=== PATIENT | female | born 1965 | race Caucasian/White ===

== ENCOUNTER → 2018-02-19 | Outpatient (CLI) | payer BC ==
--- NOTE | 2018-02-20 11:39 | MM ---
Reason for exam: screening (asymptomatic). Last mammogram was performed 2 years ago. Physical Findings: A clinical breast exam by your physician is recommended on an annual basis and results should be correlated with mammographic findings. MG 3D Screening Mammo W/Cad Bilateral CC and MLO view(s) were taken. Prior study comparison: March 05, 2016, mammogram, performed at [facility]. February 23, 2015, mammogram, performed at [facility]. The breast tissue is heterogeneously dense. This may lower the sensitivity of mammography. There are benign appearing round calcifications in the left breast. Asymmetric breast tissue in the right upper quadrant is stable. There is no discrete abnormality. ASSESSMENT: Benign, BI-RAD 2 RECOMMENDATION: Routine screening mammogram of both breasts in 1 year.
== END ==
LOC: RADMAMWWP 07:33
PROVIDERS: ATTEND Family Medicine
DX: Z12.31 Encounter for screening mammogram for malignant neoplasm of breast (principal)
CPT/HCPCS: 77063; 77067

== ENCOUNTER → 2019-05-03 | Outpatient (CLI) | payer BC ==
--- NOTE | 2019-05-03 10:17 | MM ---
Reason for exam: screening (asymptomatic). Last mammogram was performed 1 year and 2 months ago. History: Took hormonal contraceptives for 2 years. Physical Findings: A clinical breast exam by your physician is recommended on an annual basis and results should be correlated with mammographic findings. MG 3D Screening Mammo W/Cad Bilateral CC and MLO view(s) were taken. Prior study comparison: February 19, 2018, bilateral MG 3d screening mammo w/cad. March 05, 2016, mammogram, performed at [facility]. There are scattered fibroglandular densities. No suspicious abnormality. No significant changes when compared with prior studies. ASSESSMENT: Negative, BI-RAD 1 RECOMMENDATION: Routine screening mammogram of both breasts in 1 year.
== END | disposition home or self-care (01) ==
LOC: RADMAMWWP 07:11
PROVIDERS: ATTEND Family Medicine
DX: Z12.31 Encounter for screening mammogram for malignant neoplasm of breast (principal)
CPT/HCPCS: 77063; 77067

== ENCOUNTER 2019-12-08 10:00 | Inpatient (IN) | payer BC ==
[2019-12-08] MEDS ORDERED: ASPIRIN 81 MG PO STA (10:12)
[2019-12-08] MEDS ORDERED: NITROGLYCERIN OINT 1 INCH/GM PACKET TOPICAL STA (10:12)
--- NOTE | 2019-12-08 10:37 | XR ---
EXAMINATION TYPE: XR chest 2V DATE OF EXAM: 12/08/2019 CLINICAL HISTORY: Left chest pain TECHNIQUE: Frontal and lateral views of the chest are obtained. COMPARISON: None FINDINGS: The cardiomediastinal silhouette is within normal limits for size. Pulmonary vasculature i s normal. There is no focal air space opacity, pleural effusion, or pneumothorax seen. The osseous st ructures are intact. IMPRESSION: No acute cardiopulmonary process.
[2019-12-08 10:51] LABS: ALT 38 U/L (4-34); AST 71 U/L (14-36); African American GFR (CKD) >90 (>60 ml/min/1.73 sqM); Albumin 4.4 g/dL (3.5-5.0); Alkaline Phosphatase 76 U/L (38-126); Anion Gap 6 mmol/L; Blood Urea Nitrogen 15 mg/dL (7-17); Calcium 9.9 mg/dL (8.4-10.2); Carbon Dioxide 26 mmol/L (22-30); Chloride 106 mmol/L (98-107); Glucose 96 mg/dL (74-99); Non-African American GFR(CKD) 80 (>60 ml/min/1.73 sqM); Potassium 4.4 mmol/L (3.5-5.1); Sodium 138 mmol/L (137-145); Total Bilirubin 0.7 mg/dL (0.2-1.3); Total Protein 7.4 g/dL (6.3-8.2)
[2019-12-08 10:57] LABS: D-Dimer 0.23 mg/L FEU (<0.60); Partial Thromboplastin Time 22.6 sec (22.0-30.0)
[2019-12-08 11:04] LABS: Basophils % (A) 1 %; Eosinophils % (A) 0 %; HCT 41.4 % (34.0-46.0); HGB 13.6 gm/dL (11.4-16.0); Lymphocytes # (A) 1.5 k/uL (1.0-4.8); Lymphocytes % (A) 27 %; MCH 30.9 pg (25.0-35.0); MCHC 32.7 g/dL (31.0-37.0); MCV 94.3 fL (80.0-100.0); Mean Platelet Volume 7.5; Monocytes # (A) 0.5 k/uL (0-1.0); Monocytes % (A) 8 %; Neutrophils # (A) 3.5 k/uL (1.3-7.7); Neutrophils % (A) 62 %; Platelet Count 241 k/uL (150-450); RBC 4.39 m/uL (3.80-5.40); RDW 12.3 % (11.5-15.5); WBC 5.6 k/uL (3.8-10.6)
--- NOTE | 2019-12-08 11:22 | ED ---
General Adult HPI - General Chief complaint: Chest Pain Stated complaint: abnormal pabs Time Seen by Provider: 12/08/19 10:10 Source: patient, RN notes reviewed, old records reviewed Mode of arrival: ambulatory Limitations: no limitations - History of Present Illness Initial comments: This a 54-year-old female presents to the emergency department complaining that she had some anterior chest pain yesterday and pain going down her left arm. Patient states with her primary medical care doctor's office and they did an EKG and rohan some blood. Patient states today she was told that she has go to the emergency department because one of her cardiac enzymes was elevated. Patient states she no longer has any chest pain or pressure. Patient complains of left arm pain. Patient denies any recent fever chills or cough. Patient denies any abdominal pain patient denies nausea vomiting diarrhea. Patient denies any diaphoretic episodes. Patient denies any lightheadedness dizziness or near syncopal episode. - Related Data Home Medications Medication Instructions Recorded Confirmed Diclofenac Sodium [Voltaren] 75 mg PO BID PRN 12/08/19 12/08/19 Hyaluronic Acid 1 tab PO DAILY 12/08/19 12/08/19 L.acidoph,Paracasei, B.lactis 1 cap PO DAILY@1200 12/08/19 12/08/19 [Probiotic] Allergies Allergy/AdvReac Type Severity Reaction Status Date / Time shellfish derived [Shellfish] Allergy Rash/Hives Verified 12/08/19 10:56 Review of Systems ROS Statement: Those systems with pertinent positive or pertinent negative responses have been documented in the HPI. ROS Other: All systems not noted in ROS Statement are negative. Past Medical History Past Medical History: No Reported History History of Any Multi-Drug Resistant Organisms: None Reported Past Surgical History: Tonsillectomy, Tubal Ligation Past Psychological History: No Psychological Hx Reported Smoking Status: Never smoker Past Alcohol Use History: Occasional Past Drug Use History: None Reported General Exam - General Exam Comments Initial Comments: GENERAL: Patient is well-developed and well-nourished. Patient is nontoxic and well- hydrated and is in mild distress. ENT: Neck is soft and supple. No significant lymphadenopathy is noted. Oropharynx is clear. Moist mucous membranes. Neck has full range of motion without eliciting any pain. EYES: The sclera were anicteric and conjunctiva were pink and moist. Extraocular movements were intact and pupils were equal round and reactive to light. Eyelids were unremarkable. PULMONARY: Unlabored respirations. Good breath sounds bilaterally. No audible rales rhonchi or wheezing was noted. CARDIOVASCULAR: There is a regular rate and rhythm without any murmurs gallops or rubs. ABDOMEN: Soft and nontender with normal bowel sounds. SKIN: Skin is clear with no lesions or rashes and otherwise unremarkable. NEUROLOGIC: Patient is alert and oriented x3. Cranial nerves II through XII are grossly intact. Motor and sensory are also intact. Normal speech, volume and content. Symmetrical smile. MUSCULOSKELETAL: Normal extremities with adequate strength and full range of motion. No lower extremity swelling or edema. No calf tenderness. LYMPHATICS: No significant lymphadenopathy is noted PSYCHIATRIC: Normal psychiatric evaluation. Limitations: no limitations Course Vital Signs 12/08/19 12/08/19 10:09 10:59 Temperature 98.2 F Pulse Rate 88 66 Respiratory 18 18 Rate Blood Pressure 146/74 120/59 O2 Sat by Pulse 98 98 Oximetry Medical Decision Making - Medical Decision Making EKG shows normal sinus rhythm at 69 bpm NC interval 238 QRS is 66 QT interval 34 QTC is 411. Patient's EKG shows no ST segment elevation or depression. I spoke with cardiology and they're going to come to the emergency department see the patient. Started the patient heparin for her non-STEMI. I spoke with Dr. Bills he agreed to admit the patient admitted the patient wrote ad mitting orders. - Lab Data Result diagrams: 12/08/19 10:15 12/08/19 10:15 Lab Results 12/08/19 12/08/19 12/08/19 Range/Units 10:15 10:15 10:15 WBC 5.6 (3.8-10.6) k/uL RBC 4.39 (3.80-5.40) m/uL Hgb 13.6 (11.4-16.0) gm/dL Hct 41.4 (34.0-46.0) % MCV 94.3 (80.0-100.0) fL MCH 30.9 (25.0-35.0) pg MCHC 32.7 (31.0-37.0) g/dL RDW 12.3 (11.5-15.5) % Plt Count 241 (150-450) k/uL Neutrophils % 62 % Lymphocytes % 27 % Monocytes % 8 % Eosinophils % 0 % Basophils % 1 % Neutrophils # 3.5 (1.3-7.7) k/uL Lymphocytes # 1.5 (1.0-4.8) k/uL Monocytes # 0.5 (0-1.0) k/uL Eosinophils # 0.0 (0-0.7) k/uL Basophils # 0.0 (0-0.2) k/uL PT 10.0 (9.0-12.0) sec INR 1.0 (<1.2) APTT 22.6 (22.0-30.0) sec D-Dimer 0.23 (<0.60) mg/L FEU Sodium 138 (137-145) mmol/L Potassium 4.4 (3.5-5.1) mmol/L Chloride 106 (98-107) mmol/L Carbon Dioxide 26 (22-30) mmol/L Anion Gap 6 mmol/L BUN 15 (7-17) mg/dL Creatinine 0.83 (0.52-1.04) mg/dL Est GFR (CKD-EPI)AfAm >90 (>60 ml/min/1.73 sqM) Est GFR (CKD-EPI)NonAf 80 (>60 ml/min/1.73 sqM) Glucose 96 (74-99) mg/dL Calcium 9.9 (8.4-10.2) mg/dL Magnesium 2.0 (1.6-2.3) mg/dL Total Bilirubin 0.7 (0.2-1.3) mg/dL AST 71 H (14-36) U/L ALT 38 H (4-34) U/L Alkaline Phosphatase 76 (38-126) U/L Troponin I (0.000-0.034) ng/mL NT-Pro-B Natriuret Pep pg/mL Total Protein 7.4 (6.3-8.2) g/dL Albumin 4.4 (3.5-5.0) g/dL 12/08/19 12/08/19 Range/Units 10:15 10:15 WBC (3.8-10.6) k/uL RBC (3.80-5.40) m/uL Hgb (11.4-16.0) gm/dL Hct (34.0-46.0) % MCV (80.0-100.0) fL MCH (25.0-35.0) pg MCHC (31.0-37.0) g/dL RDW (11.5-15.5) % Plt Count (150-450) k/uL Neutrophils % % Lymphocytes % % Monocytes % % Eosinophils % % Basophils % % Neutrophils # (1.3-7.7) k/uL Lymphocytes # (1.0-4.8) k/uL Monocytes # (0-1.0) k/uL Eosinophils # (0-0.7) k/uL Basophils # (0-0.2) k/uL PT (9.0-12.0) sec INR (<1.2) APTT (22.0-30.0) sec D-Dimer (<0.60) mg/L FEU Sodium (137-145) mmol/L Potassium (3.5-5.1) mmol/L Chloride (98-107) mmol/L Carbon Dioxide (22-30) mmol/L Anion Gap mmol/L BUN (7-17) mg/dL Creatinine (0.52-1.04) mg/dL Est GFR (CKD-EPI)AfAm (>60 ml/min/1.73 sqM) Est GFR (CKD-EPI)NonAf (>60 ml/min/1.73 sqM) Glucose (74-99) mg/dL Calcium (8.4-10.2) mg/dL Magnesium (1.6-2.3) mg/dL Total Bilirubin (0.2-1.3) mg/dL AST (14-36) U/L ALT (4-34) U/L Alkaline Phosphatase (38-126) U/L Troponin I 6.530 H* (0.000-0.034) ng/mL NT-Pro-B Natriuret Pep 179 pg/mL Total Protein (6.3-8.2) g/dL Albumin (3.5-5.0) g/dL Critical Care Time Critical Care Time: Yes Total Critical Care Time: 35 Disposition Clinical Impression: Acute non-ST elevation myocardial infarction (NSTEMI) Disposition: ADMITTED IP TO THIS HOSP Referrals: Roberto Ta MD [Primary Care Provider] - 1-2 days Time of Disposition: 11:41
[2019-12-08] MEDS ORDERED: HEPARIN SODIUM,PORCINE 5,000 UNIT/ML 1 ML VIAL IV ONE (11:40)
[2019-12-08] MEDS ORDERED: NITROGLYCERIN SL TABS 0.4 MG TAB SUBLINGUAL PRN (11:42)
[2019-12-08] MEDS ORDERED: HEPARIN SOD,PORK IN 0.45% NACL 25,000 UNIT in 0.45% NACL 1 250ML.BAG IV SCH (11:45)
[2019-12-08] MEDS ORDERED: ATORVASTATIN 80 MG TAB PO STA (12:03)
[2019-12-08] MEDS ORDERED: HEPARIN SODIUM 1,000 UN/ML (10ML VL) ONE (12:33)
[2019-12-08] MEDS ORDERED: IV FLUID CONTINUATION 1,000 ML IV ONE (12:40)
[2019-12-08] MEDS: MIDAZOLAM 2 MG/2 ML VIAL IVP ONE ×2 (12:40→12:45)
[2019-12-08] MEDS ORDERED: LIDOCAINE 1% INJ 10MG/ML (20 ML MDV) SQ ONE (12:45)
[2019-12-08] MEDS ORDERED: VERAPAMIL SYRINGE (5 MG/10 ML) INTRAARTER ONE (12:47)
[2019-12-08] MEDS ORDERED: IOPAMIDOL-300 50ML BTL INJ ONE (13:04)
[2019-12-08] MEDS ORDERED: IOPAMIDOL-370 100ML BTL INJ ONE (13:05)
[2019-12-08 14:26] LABS: Glucose,Whole Blood 572 mg/dL (75-99)
--- NOTE | 2019-12-08 15:35 | CC ---
CARDIAC CATHETERIZATION REPORT DATE OF SERVICE: 12/08/2019 PROCEDURE: Left heart catheterization, coronary angiography and left ventriculography. PERFORMED BY: Dr. Damion Whyte. Moderate conscious sedation time was 24 minutes. Patient was administered Versed. Oxygen saturation, hemodynamics and EKG were monitored closely. CLINICAL INFORMATION: Mrs. Arabella Smith is a 54-year-old lady who came to the hospital with an episode of chest pain that happened yesterday. A troponin was drawn at her PCP's office that revealed a significant abnormality. She was asked to come to the emergency room. Clinical picture is some left arm discomfort, but patient had what seems to be nondescript chest pain and nonspecific EKG changes but significant troponin elevation. She was advised cardiac catheterization after due discussion regarding risks, benefits and options. PROCEDURE NOTE: Under local anesthesia and strict aseptic precautions, a 6-Azerbaijani introducer was placed in the right radial artery. Using a JL3.5 guide catheter and a JR4 catheter, I performed coronary angiography, and a pigtail catheter was used to check LV pressures. Left ventriculogram was performed in 30-degree BROOKS projection. Patient tolerated the procedure well. The sheath was taken out and TR band applied. The saturation in the fingers of the right hand was 94%. Patient tolerated procedure well without complications. CARDIAC CATHETERIZATION FINDINGS: The left ventricular end-diastolic pressure was about 5 mmHg without any gradient across the aortic valve. LEFT VENTRICULOGRAM: This was performed in 30-degree BROOKS projection and revealed a left ventricle which is of normal size with good systolic function without segmental wall motion abnormality. Ejection fraction 55% or more. No mitral regurgitation was noted. LEFT MAIN CORONARY ARTERY: Short patent vessel that is free of significant disease. It immediately bifurcates into LAD and circumflex. Left main itself is free of significant disease. LEFT ANTERIOR DESCENDING CORONARY ARTERY: Good-caliber vessel extends along the anterior wall, gives off septal branches, diagonal branches, runs towards the apex. The distal one fourth of the vessel is small in caliber, but overall no significant disease in the LAD system. There is a fairly decent-sized diagonal branch that comes off from the LAD and is a free of significant disease. This is a very high diagonal branch noted. The diagonal is also free of significant disease. LEFT POSTERIOR CIRCUMFLEX CORONARY ARTERY: Technically a very dominant vessel. No significant disease. It gives off a single obtuse marginal, small in caliber, distally bifurcates into a large PDA and PLV, both of which are free of significant disease. Circumflex is dominant and has no significant disease other than minor irregularities. RIGHT CORONARY ARTERY: Technically a nondominant vessel, small in caliber and distribution. It supplies a limited amount of myocardium. No significant disease noted. FINAL IMPRESSION: This patient has a left-dominant system, normal filling pressures, no gradient across the aortic valve. Ejection fraction of 55% without wall motion abnormality and no significant obstructive CAD. RECOMMENDATIONS: Findings were discussed with the patient and her . I am recommending that we will continue intravenous heparin later on and her beta blockers and losartan. However, I will obtain an echocardiogram as well and also a CT angio of the chest to rule out any other pathology. Discussed my thoughts in detail with the patient and her . MMODL / IJN: [id number] /
--- NOTE | 2019-12-08 15:37 | CONS ---
CONSULTATION This is a 54-year-old lady without any significant past medical history. She came into the emergency room upon the advice of her primary care physician, Dr. Ta. Apparently she went to his office yesterday with left arm discomfort and nondescript chest tightness and had an EKG that was unremarkable, according to the patient. A troponin was drawn and this came out to be abnormal, so she was asked to go to the emergency room today. The troponin was about 7.5 and she came into the ER today and still had left arm discomfort but no chest pressure. EKG revealed there T-wave abnormality of a mild degree in V1 and V2 which are considered nonspecific and some Q- waves. However, there were no acute changes on the EKG. I saw her in the emergency room. She was complaining of some mild left arm discomfort. No clear-cut angina. She was hemodynamically stable and resting comfortably. I recommended coronary angiography based on her presentation and symptomatology, and this will be performed expeditiously. PAST MEDICAL HISTORY: Unremarkable for hypertension, diabetes, myocardial infarction or CVA. She is status post tubal ligation and tonsillectomy. MEDICATIONS: None. ALLERGIES: NO KNOWN DRUG ALLERGIES. PHYSICAL EXAMINATION: On examination, blood pressure is 120/70, pulse rate is 70 per minute. HEENT: Unremarkable. Fundus was not examined by me. Neck is supple. No JVD. I do not hear a carotid bruit. There is no thyromegaly. Heart exam reveals S1, S2 heard normally. No rub, murmur or gallop. Lungs are clear. Abdomen is soft, nontender. Lower extremities reveal normal pulses. No edema. Central nervous system is normal. EKG revealed sinus mechanism with nonspecific T-wave abnormality in leads V1, V2, and also small Q-waves, nonspecific changes, no acute findings. Troponin elevation is noted. Today to 6.5. Yesterday it was 7.5. IMPRESSION: 1. Sth-NC-slyuezuiy myocardial infarction. 2. No other major risk factors. RECOMMENDATIONS: I recommended coronary angiography and proceeded to perform this immediately. MMODL / IJN: [id number] /
[2019-12-08] MEDS: SODIUM CHLORIDE 0.9% 1,000 ML IV SCH ×2 (16:48→22:58)
--- NOTE | 2019-12-08 17:20 | CT ---
EXAMINATION TYPE: CT angio chest DATE OF EXAM: 12/08/2019 COMPARISON: Chest x-ray 12/08/2019 HISTORY: Shortness of breath and chest pain CT DLP: 326.7 mGycm Automated exposure control for dose reduction was used. CONTRAST: CTA scan of the thorax is performed with IV Contrast, patient injected with 100 mL of Isovue 370, pul monary embolism protocol. MIP images are created and reviewed. 3D reconstructed images are created on an independent workstation and reviewed. FINDINGS: LUNGS: The lungs are grossly clear, there is no concerning parenchymal mass or nodule identified. T here is no pleural effusion or pneumothorax seen. The tracheobronchial tree is patent. AORTA: No additional significant abnormality is seen. MEDIASTINUM: There is satisfactory enhancement of the pulmonary artery and its branches, there is no CT evidence for pulmonary embolism. There are no greater than 1 cm hilar or mediastinal lymph nodes. No pericardial effusion is seen. OTHER: Contrast excretion in the left kidney due to patient's previous exam. IMPRESSION: NO PULMONARY EMBOLISM.
[2019-12-08] MEDS ORDERED: ZOLPIDEM 5 MG TAB PO PRN (17:39)
--- NOTE | 2019-12-08 17:39 | P.HPIM ---
History of Present Illness H&P Date: 12/08/19 Chief Complaint: Chest pain This is a history of physical 54-year-old white female who came in yesterday to my office with chest pain which radiated to the arm. EKG did not show any acute changes. However, she had elevated troponin and other cardiac enzymes. The patient was immediately told to come the emergency room where she was evaluated by the ER and admitted. The patient then was evaluated by cardiology and had cardiac catheterization. The patient had no known coronary disease but elevated troponin. The patient is seen postoperatively Review of Systems Constitutional: Denies chills, Denies fever Eyes: denies blurred vision, denies pain Cardiovascular: Reports chest pain Past Medical History Past Medical History: No Reported History History of Any Multi-Drug Resistant Organisms: None Reported Past Surgical History: Tonsillectomy, Tubal Ligation Past Anesthesia/Blood Transfusion Reactions: No Reported Reaction Past Psychological History: No Psychological Hx Reported Smoking Status: Never smoker Past Alcohol Use History: Occasional Past Drug Use History: None Reported - Past Family History Father History Unknown: Yes Mother Family Medical History: CVA/TIA, Diabetes Mellitus Sister(s) Family Medical History: Cancer Additional Family Medical History / Comment(s): bladder Medications and Allergies Home Medications Medication Instructions Recorded Confirmed Type Diclofenac Sodium [Voltaren] 75 mg PO BID PRN 12/08/19 12/08/19 History Hyaluronic Acid 1 tab PO DAILY 12/08/19 12/08/19 History L.acidoph,Paracasei, B.lactis 1 cap PO DAILY@1200 12/08/19 12/08/19 History [Probiotic] Allergies Allergy/AdvReac Type Severity Reaction Status Date / Time shellfish derived [Shellfish] Allergy Rash/Hives Verified 12/08/19 10:56 Physical Exam Vitals: Vital Signs Temp Pulse Pulse Resp BP BP Pulse Ox 12/08/19 16:34 71 18 105/63 97 12/08/19 16:00 97.6 F 18 12/08/19 15:34 69 18 107/69 98 12/08/19 15:04 68 95/58 98 12/08/19 14:19 74 16 96/62 97 12/08/19 14:04 62 97/61 12/08/19 13:49 66 18 106/56 99 12/08/19 12:12 98 F 68 18 107/82 100 09/02/20 10:59 66 18 120/59 98 12/08/19 10:09 98.2 F 88 18 146/74 98 Intake and Output 12/08/19 12/08/19 12/08/19 06:59 14:59 22:59 Intake Total 50 Balance 50 Intake: IV 50 Other: # Voids 2 Weight 78.925 kg - Constitutional General appearance: no acute distress - EENT Eyes: EOMI - Neck Neck: no lymphadenopathy - Respiratory Respiratory: bilateral: CTA - Cardiovascular Rhythm: regular Heart sounds: normal: S1, S2 Abnormal Heart Sounds: no S3 Gallop, no S4 Gallop - Gastrointestinal General gastrointestinal: soft, no tenderness - Integumentary Integumentary: no cellulitis - Neurologic Neurologic: CNII-XII intact - Musculoskeletal Musculoskeletal: gait normal Results CBC & Chem 7: 12/08/19 10:15 12/08/19 10:15 Labs: Abnormal Lab Results - Last 24 Hours (Table) 12/08/19 12/08/19 12/08/19 Range/Units 10:15 10:15 13:36 POC Glucose (mg/dL) (75-99) mg/dL AST 71 H (14-36) U/L ALT 38 H (4-34) U/L Troponin I 6.530 H* 5.990 H* (0.000-0.034) ng/mL 12/08/19 12/08/19 Range/Units 14:24 15:49 POC Glucose (mg/dL) 572 H (75-99) mg/dL AST (14-36) U/L ALT (4-34) U/L Troponin I 4.520 H* (0.000-0.034) ng/mL Thrombosis Risk Factor Assmnt - Choose All That Apply Any of the Below Risk Factors Present?: Yes Each Factor Represents 1 point: Obesity (BMI >25) Other Risk Factors: No Thrombosis Risk Factor Assessment Total Risk Factor Score: 1 Thrombosis Risk Factor Assessment Level: Low Risk Assessment and Plan (1) Angina at rest Current Visit: Yes Status: Acute Code(s): I20.8 - OTHER FORMS OF ANGINA PECTORIS SNOMED Code(s): 019266848 (2) Elevated troponin I level Current Visit: Yes Status: Acute Code(s): R79.89 - OTHER SPECIFIED ABNORMAL FINDINGS OF BLOOD CHEMISTRY SNOMED Code(s): 892988491 Plan: Normal coronary arteries. The patient will placed on appropriate protocol for cardioprotective effect. We'll continue to follow. Appreciate cardiology input with cardiac catheterization. Anticipate discharge in next 24 hours.
[2019-12-08] MEDS ORDERED: NITROGLYCERIN OINT 1 INCH/GM PACKET TOPICAL SCH (18:00)
[2019-12-08] MEDS: LOSARTAN 25 MG TAB PO SCH (20:34)
[2019-12-08] MEDS: HEPARIN SODIUM,PORCINE 5,000 UNIT/ML 1 ML VIAL SQ SCH (20:36)
[2019-12-09] MEDS: SODIUM CHLORIDE 0.9% 500 ML 500 ML IV SCH (02:32)
[2019-12-09] MEDS: PANTOPRAZOLE 40 MG TABLET PO SCH (04:59)
[2019-12-09 06:20] LABS: HCT 41.6 % (34.0-46.0); HGB 13.3 gm/dL (11.4-16.0); MCH 30.6 pg (25.0-35.0); MCHC 31.9 g/dL (31.0-37.0); Mean Platelet Volume 7.5; Platelet Count 216 k/uL (150-450); RBC 4.34 m/uL (3.80-5.40); RDW 12.3 % (11.5-15.5)
[2019-12-09 06:45] LABS: African American GFR (CKD) >90 (>60 ml/min/1.73 sqM); Anion Gap 6 mmol/L; Blood Urea Nitrogen 14 mg/dL (7-17); Calcium 9.6 mg/dL (8.4-10.2); Carbon Dioxide 27 mmol/L (22-30); Chloride 106 mmol/L (98-107); Cholesterol 223 mg/dL (<200); Glucose 94 mg/dL (74-99); HDL Cholesterol 81 mg/dL (40-60); LDL Cholesterol,Calculated 119 mg/dL (0-99); Non-African American GFR(CKD) 87 (>60 ml/min/1.73 sqM); Potassium 4.5 mmol/L (3.5-5.1); Sodium 139 mmol/L (137-145); Triglycerides 117 mg/dL (<150)
--- NOTE | 2019-12-09 08:06 | P.DS ---
Providers Date of admission: 12/08/19 11:46 Attending physician: Roberto Ta Consults: 12/08/19 11:42 Consult Physician Urgent Consulting Provider: [facility] Consult Reason/Comments: Non-STEMI Do you want consulting provider notified?: Already Contacted Primary care physician: Roberto Ta - Discharge Diagnosis(es) (1) Angina at rest Current Visit: Yes Status: Acute (2) Elevated troponin I level Current Visit: Yes Status: Acute Hospital Course: This discharge summary an 54-year-old white female essentially admitted for elevated troponin and chest pain. Catheterization did not show significant coronary artery disease. She has had a presumed diagnosis of myocardial infarction with no obstructive coronary artery element. She'll be discharged on appropriate protocol. The patient fully understands her diagnosis and will follow-up with me in about 5-7 days. Patient Condition at Discharge: Stable Plan - Discharge Summary Discharge Rx Participant: Yes New Discharge Prescriptions: New Aspirin 81 mg PO DAILY chew Losartan [Cozaar] 12.5 mg PO HS #30 tab Atorvastatin [Lipitor] 40 mg PO DAILY #30 tab Metoprolol Tartrate [Lopressor] 12.5 mg PO DAILY #30 tab Nitroglycerin Sl Tabs [Nitrostat] 0.4 mg SUBLINGUAL Q5M PRN #50 tab PRN Reason: Chest Pain Continue L.acidoph,Paracasei, B.lactis [Probiotic] 1 cap PO DAILY@1200 Hyaluronic Acid 1 tab PO DAILY Discontinued Diclofenac Sodium [Voltaren] 75 mg PO BID PRN PRN Reason: Pain Discharge Medication List Hyaluronic Acid 1 tab PO DAILY 12/08/19 [History] L.acidoph,Paracasei, B.lactis [Probiotic] 1 cap PO DAILY@1200 12/08/19 [History] Aspirin 81 mg PO DAILY chew 12/09/19 [Rx] Atorvastatin [Lipitor] 40 mg PO DAILY #30 tab 12/09/19 [Rx] Losartan [Cozaar] 12.5 mg PO HS #30 tab 12/09/19 [Rx] Metoprolol Tartrate [Lopressor] 12.5 mg PO DAILY #30 tab 12/09/19 [Rx] Nitroglycerin Sl Tabs [Nitrostat] 0.4 mg SUBLINGUAL Q5M PRN #50 tab 12/09/19 [Rx] Follow up Appointment(s)/Referral(s): Roberto Ta MD [Primary Care Provider] - 1 Week Discharge Disposition: HOME SELF-CARE
[2019-12-09] MEDS: METOPROLOL TARTRATE 12.5 MG TAB PO SCH (09:00)
[2019-12-09] MEDS ORDERED: ASPIRIN 325 MG TAB PO SCH (09:00)
[2019-12-09] MEDS: ASPIRIN 81 MG PO SCH (09:00)
[2019-12-09] MEDS: HEPARIN SODIUM,PORCINE 5,000 UNIT/ML 1 ML VIAL SQ SCH ×2 (09:00→21:45)
[2019-12-09] MEDS: ATORVASTATIN 40 MG TAB PO SCH (09:00)
--- NOTE | 2019-12-09 14:07 | PN ---
PROGRESS NOTE Mrs. Smith came in yesterday with the left arm and chest pain and had a troponin elevation. Cardiac cath did not reveal any obstructive CAD. The LV gram although I did not call it on the report revealed a mild mid inferior wall out pouching Echo raises the possibility of atypical takotsubo with a preserved LV function and mild area of hypokinesia. Either way, these findings were explained to the patient. Possibility of a takotsubo cannot be totally excluded or this could be a myocardial infarction without obstructive CAD. We will treat her with beta ramiro, discontinue the IV, increase activity and have her ambulate. She has some isolated PVCs. We will check a BNP and magnesium level also. Vitals are stable. The right radial cath site is clean and dry with a good pulse. S1, S2 heard normally. Lungs are clear. Abdomen and lower extremity exam unchanged. Hopefully, she will be discharged tomorrow. I discussed my thoughts in detail with the patient. MMJULIUS / IJN: [id number] /
[2019-12-09] MEDS: LOSARTAN 25 MG TAB PO SCH (21:45)
[2019-12-10] MEDS: PANTOPRAZOLE 40 MG TABLET PO SCH (06:26)
[2019-12-10] MEDS: SODIUM CHLORIDE 0.9% 500 ML 500 ML IV SCH (06:27)
[2019-12-10 07:30] LABS: Calcium 9.8 mg/dL (8.4-10.2); Potassium 4.4 mmol/L (3.5-5.1)
--- NOTE | 2019-12-10 07:32 | P.PN ---
Subjective Progress Note Date: 12/09/19 Principal diagnosis: NSTEMI The patient was essentially for chest clinically he still continues to have left arm numbness. Appreciate cardiology input. Objective - Vital Signs Vital signs: Vital Signs Temp 98.1 F 12/10/19 04:00 Pulse 60 12/10/19 04:00 Resp 16 12/10/19 04:00 BP 108/60 12/10/19 04:00 Pulse Ox 97 12/10/19 04:00 Intake & Output 12/09/19 12/10/19 12/10/19 18:59 06:59 18:59 Intake Total 480 5 Output Total 600 Balance 480 -595 Weight 78.063 kg Intake: IV 5 Invasive Line 1 5 Oral 480 Output: Urine 600 Other: Voiding Method Toilet Toilet # Voids 1 # Bowel Movements 0 - Constitutional General appearance: Present: average body habitus - EENT Eyes: Absent: abnormal pupil - Neck Neck: Absent: lymphadenopathy - Respiratory Respiratory: bilateral: CTA - Cardiovascular Rhythm: regular Heart sounds: normal: S1, S2 Abnormal Heart Sounds: Absent: S3 Gallop - Gastrointestinal General gastrointestinal: Present: soft. Absent: tenderness - Integumentary Integumentary: Absent: cellulitis - Labs CBC & Chem 7: 12/09/19 05:52 12/09/19 05:52 Assessment and Plan (1) Angina at rest Current Visit: Yes Status: Acute Code(s): I20.8 - OTHER FORMS OF ANGINA PECTORIS SNOMED Code(s): 921515083 (2) Elevated troponin I level Current Visit: Yes Status: Acute Code(s): R79.89 - OTHER SPECIFIED ABNORMAL FINDINGS OF BLOOD CHEMISTRY SNOMED Code(s): 315761991 Plan: Normal coronary arteries. The patient will placed on appropriate protocol for cardioprotective effect. We'll continue to follow. Appreciate cardiology input with cardiac catheterization. Time with Patient: Greater than 30
[2019-12-10 09:29] VITALS: RESP 18
[2019-12-10] MEDS: ASPIRIN 81 MG PO SCH (09:29)
[2019-12-10] MEDS: ATORVASTATIN 40 MG TAB PO SCH (09:29)
[2019-12-10] MEDS: HEPARIN SODIUM,PORCINE 5,000 UNIT/ML 1 ML VIAL SQ SCH (09:29)
[2019-12-10] MEDS: METOPROLOL TARTRATE 12.5 MG TAB PO SCH (09:29)
--- NOTE | 2019-12-10 13:52 | PN ---
PROGRESS NOTE This is a 54-year-old lady without significant past medical history who came into the hospital with left arm pain, had a troponin elevation and no obstructive CAD. Echo revealed a mid septal area of focal hypokinesia. This was not easily evident on LV gram, but I could see it on the echocardiogram. Possibility of variant takotsubo or a Minoc syndrome should be considered. Discussed with the patient at length. Will discharge her today. Her right radial cath site is clean and dry. She will go home on a small dose of losartan, beta ramiro and aspirin. No further ectopy, doing well, ambulating the hallways without symptoms. . Vitals are stable, no JVD. S1, S2 heard normally. Lungs are clear. Abdomen and lower extremity exam unchanged. I will see her in the office next Friday. MMODL / IJN: [id number] /
[2019-12-10 14:14] VITALS: BP 123/72; PULSE 74; TEMP 97.3
--- NOTE | 2019-12-14 08:56 | ECHOF ---
Referral Reason:Chest pain MEASUREMENTS -------- HEIGHT: 165.1 cm WEIGHT: 78.9 kg BP: 107/82 RVIDd: 1.9 cm (< 3.3) IVSd: 0.8 cm (0.6 - 1.1) LVIDd: 4.8 cm (3.9 - 5.3) LVPWd: 0.9 cm (0.6 - 1.1) IVSs: 1.3 cm LVIDs: 3.2 cm LVPWs: 1.3 cm LAESV Index (A-L): 11.28 ml/m Ao Diam: 2.7 cm (2.0 - 3.7) AV Cusp: 1.9 cm (1.5 - 2.6) LA Diam: 1.8 cm (2.7 - 3.8) MV EXCURSION: 16.594 mm (> 18.000) MV EF SLOPE: 108 mm/s (70 - 150) EPSS: 1.0 cm MV E Arron: 0.61 m/s MV DecT: 199 ms MV A Arron: 0.62 m/s MV E/A Ratio: 0.98 RAP: 5.00 mmHg RVSP: 16.77 mmHg FINDINGS -------- This was a technically good study. The left ventricular size is normal. Left ventricular wall thickness is normal. Overall left vent ricular systolic function is low-normal with, an EF between 50 - 55 %. The diastolic filling patter n is normal for the age of the patient 7.04. Basal inferoseptal LV wall motion is hypokinetic. M id inferoseptal LV wall motion is hypokinetic. The right ventricle is normal in size. The left atrial size is normal. Normal LA size by volume 22+/-6 ml/m2. The right atrial size is normal. The aortic valve is trileaflet and appears structurally normal. The mitral valve is normal. There is trace mitral regurgitation. The tricuspid valve appears structurally normal. Trace tricuspid regurgitation present. Right yair tricular systolic pressure is normal at < 35 mmHg. There is no pulmonic regurgitation present. The aortic root size is normal. Normal inferior vena cava with normal inspiratory collapse consistent with estimated right atrial pre ssure of 5 mmHg. CONCLUSIONS -------- 1. The left ventricular size is normal. 2. Left ventricular wall thickness is normal. 3. The diastolic filling pattern is normal for the age of the patient 7.04 4. Basal inferoseptal LV wall motion is hypokinetic. 5. Mid inferoseptal LV wall motion is hypokinetic. 6. There is trace mitral regurgitation. 7. Trace tricuspid regurgitation present. SAMPLE STEAMER: Maylin Woody RDCS
== END 2019-12-10 15:42 | disposition home or self-care (01) | DRG 282 ==
LOC: EC 10:00 → 3SCARD 11:46
PROVIDERS: ADMIT Family Medicine; ATTEND Family Medicine
PROC: B2151ZZ Fluoroscopy of Left Heart using Low Osmolar Contrast (ICD-10-PCS; principal; 2019-12-08 11:20)
PROC: 4A023N7 Measurement of Cardiac Sampling and Pressure, Left Heart, Percutaneous Approach (ICD-10-PCS; principal; 2019-12-08 11:20)
PROC: B2111ZZ Fluoroscopy of Multiple Coronary Arteries using Low Osmolar Contrast (ICD-10-PCS; principal; 2019-12-08 11:20)
DX: I21.4 Non-ST elevation (NSTEMI) myocardial infarction (principal); I49.3 Ventricular premature depolarization; Z79.899 Other long term (current) drug therapy; Z90.89 Acquired absence of other organs; Z98.51 Tubal ligation status; Z98.890 Other specified postprocedural states; Z91.013 Allergy to seafood; Z83.3 Family history of diabetes mellitus; Z82.3 Family history of stroke; Z80.52 Family history of malignant neoplasm of bladder
CPT/HCPCS: 36415; 71046; 71275; 80048; 80053; 80061; 83735; 83880; 84484; 85025; 85027; 85379; 85610; 85730; 93005; 93306; 93458; 96374; 99291

== ENCOUNTER → 2020-02-10 | Outpatient (CLI) | payer BC ==
[2020-02-10 11:21] LABS: HCT 42.6 % (34.0-46.0); MCH 32.2 pg (25.0-35.0); MCHC 32.8 g/dL (31.0-37.0); Mean Platelet Volume 7.3; Platelet Count 201 k/uL (150-450); RBC 4.35 m/uL (3.80-5.40); RDW 12.2 % (11.5-15.5); WBC 4.2 k/uL (3.8-10.6)
[2020-02-10 20:39] LABS: ALT 53 U/L (8-44); AST 34 U/L (13-35); Alkaline Phosphatase 94 U/L (41-126)
== END | disposition home or self-care (01) ==
LOC: LABWHC1 09:47
PROVIDERS: ATTEND Internal Medicine Interventional Cardiology
DX: R07.9 Chest pain, unspecified (principal)
CPT/HCPCS: 36415; 84075; 84450; 84460; 85027

== ENCOUNTER 2020-03-25 11:04 | Observation (INO) | payer BC ==
[2020-03-25 11:08] VITALS: RESP 18; TEMP 97.9
[2020-03-25] MEDS ORDERED: SODIUM CHLORIDE 0.9% 1,000 ML IV STA ×2 (11:22)
[2020-03-25] MEDS ORDERED: NITROGLYCERIN SL TABS 0.4 MG TAB SUBLINGUAL STA (11:22)
[2020-03-25] MEDS ORDERED: MORPHINE SULFATE 4 MG/ML SYRINGE IV STA (11:22)
[2020-03-25] MEDS ORDERED: ASPIRIN 81 MG PO STA (11:22)
--- NOTE | 2020-03-25 11:26 | ED ---
Chest Pain HPI - General Chief Complaint: Chest Pain Stated Complaint: Chest pain Time Seen by Provider: 03/25/20 11:13 Source: patient, RN notes reviewed, old records reviewed Mode of arrival: wheelchair Limitations: no limitations - History of Present Illness Initial Comments: Patient is a pleasant 54-year-old female who presents emergency department today with chief complaint of left-sided chest pain radiation into the left arm started one hour prior to arrival. She reports that she was walking in the mall when symptoms started to occur. Patient reports that this felt similar her to her previous NSTEMI that occurred in December. She reports that she had a cardiac cath, which did not result in any stents placed. Patient states that she started to have some back pain this morning as well. She denies any fevers or chills nausea or vomiting. - Related Data Home Medications Medication Instructions Recorded Confirmed Hyaluronic Acid 1 tab PO DAILY 12/08/19 03/25/20 L.acidoph,Paracasei, B.lactis 1 cap PO DAILY 12/08/19 03/25/20 [Probiotic] Atorvastatin Calcium [Lipitor] 20 mg PO DAILY 03/25/20 03/25/20 Metoprolol Tartrate [Lopressor] 12.5 mg PO DAILY 03/25/20 03/25/20 Previous Rx's Medication Instructions Recorded Aspirin 81 mg PO DAILY chew 12/09/19 Nitroglycerin Sl Tabs [Nitrostat] 0.4 mg SUBLINGUAL Q5M PRN #50 tab 12/09/19 Allergies Allergy/AdvReac Type Severity Reaction Status Date / Time shellfish derived [Shellfish] Allergy Rash/Hives Verified 03/25/20 11:53 Review of Systems ROS Statement: Those systems with pertinent positive or pertinent negative responses have been documented in the HPI. ROS Other: All systems not noted in ROS Statement are negative. EKG Findings - EKG Comments: EKG Findings:: EKG shows normal sinus rhythm normal EKG. Ventricular rate of 61 beats per minute. Intervals 1:30 milliseconds. She sabianism 74 ms. QT QTc is 46/408 ms. Past Medical History Past Medical History: Myocardial Infarction ([place]) History of Any Multi-Drug Resistant Organisms: None Reported Past Surgical History: Heart Catheterization, Tonsillectomy, Tubal Ligation Past Anesthesia/Blood Transfusion Reactions: No Reported Reaction Past Psychological History: No Psychological Hx Reported Smoking Status: Never smoker Past Alcohol Use History: Occasional Past Drug Use History: None Reported - Past Family History Father History Unknown: Yes Mother Family Medical History: CVA/TIA, Diabetes Mellitus Sister(s) Family Medical History: Cancer Additional Family Medical History / Comment(s): bladder General Exam - General Exam Comments Initial Comments: Pleasant alert and oriented 54-year-old female. No distress. Limitations: no limitations General appearance: alert, in no apparent distress Head exam: Present: atraumatic, normocephalic, normal inspection Eye exam: Present: normal appearance, PERRL, EOMI. Absent: scleral icterus, conjunctival injection, periorbital swelling ENT exam: Present: normal exam, mucous membranes moist Neck exam: Present: normal inspection. Absent: tenderness, meningismus, lymphadenopathy Respiratory exam: Present: normal lung sounds bilaterally. Absent: respiratory distress, wheezes, rales, rhonchi, stridor Cardiovascular Exam: Present: regular rate, normal rhythm, normal heart sounds. Absent: systolic murmur, diastolic murmur, rubs, gallop, clicks GI/Abdominal exam: Present: soft, normal bowel sounds. Absent: distended, tenderness, guarding, rebound, rigid Extremities exam: Present: normal inspection, full ROM, normal capillary refill. Absent: tenderness, pedal edema, joint swelling, calf tenderness Back exam: Present: normal inspection Neurological exam: Present: alert, oriented X3, CN II-XII intact Psychiatric exam: Present: normal affect, normal mood Skin exam: Present: warm, dry, intact, normal color. Absent: rash Course Vital Signs 03/25/20 03/25/20 03/25/20 11:06 11:17 11:30 Temperature 97.9 F Pulse Rate 71 73 63 Respiratory 18 Rate Blood Pressure 134/63 110/70 O2 Sat by Pulse 99 100 Oximetry 03/25/20 03/25/20 03/25/20 11:45 12:00 12:15 Temperature Pulse Rate 68 60 53 L Respiratory Rate Blood Pressure 103/70 99/59 108/67 O2 Sat by Pulse 100 100 100 Oximetry - Reevaluation(s) Reevaluation #1: 03/25/20 11:54 Patient reports improvement of pain after nitro. Chest Pain [facility] Patient is a 54-year-old female with recent history of an STEMI in December which she subsequently had a normal cardiac cath. They believe that her symptoms are possibly Takotsubo or minoc syndrome. Patient reported today that her chest pain in the left arm pain felt very similar in December. Her symptoms started 1 hour prior to arrival. The second EKG was reviewed and negative for any acute changes. Her initial troponin is negative. She did report relief with nitroglycerin dose and was given aspirin morphine after. I discussed with concern for patient's history and description of symptoms starting an hour prior to arrival and like to repeat troponin levels and Patient is agreeable to this plan. I discussed the case with Dr. Gallo and [facility]. will consult Chest x-rays negative for acute cardio pulmonary process. Correlate for COPD. Disposition Clinical Impression: Unstable angina Disposition: ADMITTED IP TO THIS HOSP Condition: Stable Is patient prescribed a controlled substance at d/c from ED?: No Referrals: Roberto Ta MD [Primary Care Provider] - 1-2 days Time of Disposition: 12:30
[2020-03-25 11:42] LABS: Basophils % (A) 1 %; Eosinophils % (A) 1 %; HCT 42.1 % (34.0-46.0); Lymphocytes # (A) 1.7 k/uL (1.0-4.8); Lymphocytes % (A) 33 %; MCH 31.1 pg (25.0-35.0); MCHC 33.3 g/dL (31.0-37.0); MCV 93.5 fL (80.0-100.0); Mean Platelet Volume 7.1; Monocytes # (A) 0.5 k/uL (0-1.0); Monocytes % (A) 10 %; Neutrophils # (A) 2.8 k/uL (1.3-7.7); Neutrophils % (A) 54 %; Platelet Count 223 k/uL (150-450); RBC 4.51 m/uL (3.80-5.40); RDW 12.5 % (11.5-15.5); WBC 5.2 k/uL (3.8-10.6)
[2020-03-25 11:53] LABS: Albumin 4.5 g/dL (3.5-5.0); Calcium 9.8 mg/dL (8.4-10.2); Magnesium 2.1 mg/dL (1.6-2.3); Potassium 4.5 mmol/L (3.5-5.1); Total Bilirubin 0.6 mg/dL (0.2-1.3); Total Protein 7.5 g/dL (6.3-8.2)
--- NOTE | 2020-03-25 11:58 | XR ---
EXAMINATION TYPE: XR chest 2V DATE OF EXAM: 03/25/2020 COMPARISON: 12/08/2019 TECHNIQUE: PA and lateral views submitted. HISTORY: Chest pain FINDINGS: The lungs are clear and there is no pneumothorax, pleural effusion, or focal pneumonia. Hyperinflat ion. Biapical pleural thickening. No overt failure. Heart size stable. Suspected tiny granuloma overl giuseppe the vertebral column on the lateral view stable from prior exam. IMPRESSION: 1. No acute process. Correlate for COPD.
[2020-03-25 12:08] LABS: Partial Thromboplastin Time 22.4 sec (22.0-30.0); Prothrombin Time 10.4 sec (9.0-12.0)
[2020-03-25] MEDS ORDERED: MORPHINE SULFATE 4 MG/ML SYRINGE IV PRN (12:31)
[2020-03-25] MEDS ORDERED: NITROGLYCERIN SL TABS 0.4 MG TAB SUBLINGUAL PRN (12:31)
[2020-03-25 13:09] VITALS: BP 103/63; PULSE 55
--- NOTE | 2020-03-25 15:04 | P.HPIM ---
History of Present Illness patient is a pleasant 54-year-old femalecame in with complaints of left-sided chest pain pressure-like sensation which is started he hours before arrival and lasted for 3 hours relieved with nitroglycerin moderate least severe patient was a diagnosed had a catheterizationI when she had similar symptoms in the past month of December at the time that a catheterization did not reveal any significant gross protocol closer diseases there were minor plaques. Patient was also diagnosed with Takatsubo, as per the patient , patient's recent echo cardiac exam was showed normal ejection fraction. Patient is taking metoprolol patient denied any shortness of breath orthopnea paroxysmal nocturnal dyspnea diaphoresis. Patient just pain is nonpleuritic not associated food. Patient just pain completely resolved at this time.patient follows up with the be Dr. MAURISIO Whyte for cardiology Review of Systems REVIEW OF SYSTEMS: CONSTITUTIONAL: No fever, no malaise, no fatigue. HEENT: No recent visual problems or hearing problems. Denied any sore throat. CARDIOVASCULAR: No orthopnea, PND, no palpitations, no syncope. PULMONARY: No shortness of breath, no cough, no hemoptysis. GASTROINTESTINAL: No diarrhea, no nausea, no vomiting, no abdominal pain. NEUROLOGICAL: No headaches, no weakness, no numbness. HEMATOLOGICAL: Denies any bleeding or petechiae. GENITOURINARY: Denies any burning micturition, frequency, or urgency. MUSCULOSKELETAL/RHEUMATOLOGICAL: Denies any joint pain, swelling, or any muscle pain. ENDOCRINE: Denies any polyuria or polydipsia. The rest of the 14-point review of systems is negative. Past Medical History Past Medical History: Myocardial Infarction ([place]) History of Any Multi-Drug Resistant Organisms: None Reported Past Surgical History: Heart Catheterization, Tonsillectomy, Tubal Ligation Past Anesthesia/Blood Transfusion Reactions: No Reported Reaction Past Psychological History: No Psychological Hx Reported Smoking Status: Never smoker Past Alcohol Use History: Occasional Past Drug Use History: None Reported - Past Family History Father History Unknown: Yes Mother Family Medical History: CVA/TIA, Diabetes Mellitus Sister(s) Family Medical History: Cancer Additional Family Medical History / Comment(s): bladder Medications and Allergies Home Medications Medication Instructions Recorded Confirmed Type Hyaluronic Acid 1 tab PO DAILY 12/08/19 03/25/20 History L.acidoph,Paracasei, B.lactis 1 cap PO DAILY 12/08/19 03/25/20 History [Probiotic] Aspirin 81 mg PO DAILY chew 12/09/19 03/25/20 Rx Nitroglycerin Sl Tabs [Nitrostat] 0.4 mg SUBLINGUAL Q5M PRN #50 tab 12/09/19 03/25/20 Rx Atorvastatin Calcium [Lipitor] 20 mg PO DAILY 03/25/20 03/25/20 History Metoprolol Tartrate [Lopressor] 12.5 mg PO DAILY 03/25/20 03/25/20 History Allergies Allergy/AdvReac Type Severity Reaction Status Date / Time shellfish derived [Shellfish] Allergy Rash/Hives Verified 03/25/20 11:53 Physical Exam Vitals: Vital Signs Temp Pulse Resp BP Pulse Ox 03/25/20 13:08 97.9 F 55 L 18 103/63 100 03/25/20 12:15 53 L 108/67 100 03/25/20 12:00 60 99/59 100 03/25/20 11:45 68 103/70 100 03/25/20 11:30 63 110/70 100 03/25/20 11:17 73 03/25/20 11:06 97.9 F 71 18 134/63 99 Intake and Output 03/24/20 03/25/20 03/25/20 22:59 06:59 14:59 Other: Weight 77.111 kg PHYSICAL EXAMINATION: GENERAL: The patient is alert and oriented x3, not in any acute distress. Well developed, well nourished. HEENT: Pupils are round and equally reacting to light. EOMI. No scleral icterus. No conjunctival pallor. Normocephalic, atraumatic. No pharyngeal erythema. No thyromegaly. CARDIOVASCULAR: S1 and S2 present. No murmurs, rubs, or gallops. PULMONARY: Chest is clear to auscultation, no wheezing or crackles. ABDOMEN: Soft, nontender, nondistended, normoactive bowel sounds. No palpable organomegaly. MUSCULOSKELETAL: No joint swelling or deformity. EXTREMITIES: No cyanosis, clubbing, or pedal edema. NEUROLOGICAL: Gross neurological examination did not reveal any focal deficits. SKIN: No rashes. Results CBC & Chem 7: 03/25/20 11:24 03/25/20 11:24 Labs: Abnormal Lab Results - Last 24 Hours (Table) 03/25/20 Range/Units 11:24 BUN 19 H (7-17) mg/dL Assessment and Plan Plan: -chest pain:we will rule out acute coronary syndromes with another set of troponin although patient had a recent cardiac catheterization which did not show any significant atherosclerotic occlusive disease and patient the EKG is normal sinus rhythm facet of troponin is negative and the second one is negative patient will be discharged today.ammonia was ruled out as well patient's symptomology is not consistent with pulmonary embolism History of Takatsubo: Presently doesn't have any heart failure symptoms
--- NOTE | 2020-03-25 15:04 | P.DS ---
Providers Date of admission: 03/25/20 12:26 Attending physician: Tasha Templeton Consults: 03/25/20 12:31 Consult Physician Urgent Consulting Provider: Laurence Whyte Consult Reason/Comments: unstable angina, hx minoc syndrome Do you want consulting provider notified?: Yes Primary care physician: Roberto Ta [facility] Course: please refer to my HPI for further details Patient Condition at Discharge: Stable Plan - Discharge Summary New Discharge Prescriptions: Continue L.acidoph,Paracasei, B.lactis [Probiotic] 1 cap PO DAILY Hyaluronic Acid 1 tab PO DAILY Aspirin 81 mg PO DAILY chew Nitroglycerin Sl Tabs [Nitrostat] 0.4 mg SUBLINGUAL Q5M PRN #50 tab PRN Reason: Chest Pain Metoprolol Tartrate [Lopressor] 12.5 mg PO DAILY Atorvastatin Calcium [Lipitor] 20 mg PO DAILY Discharge Medication List Hyaluronic Acid 1 tab PO DAILY 12/08/19 [History] L.acidoph,Paracasei, B.lactis [Probiotic] 1 cap PO DAILY 12/08/19 [History] Aspirin 81 mg PO DAILY chew 12/09/19 [Rx] Nitroglycerin Sl Tabs [Nitrostat] 0.4 mg SUBLINGUAL Q5M PRN #50 tab 12/09/19 [Rx] Atorvastatin Calcium [Lipitor] 20 mg PO DAILY 03/25/20 [History] Metoprolol Tartrate [Lopressor] 12.5 mg PO DAILY 03/25/20 [History] Follow up Appointment(s)/Referral(s): Laurence Whyte MD [STAFF PHYSICIAN] - 3 Days Roberto Ta MD [Primary Care Provider] - 3 Days
[2020-03-26] MEDS ORDERED: ASPIRIN 325 MG TAB PO SCH (09:00)
== END 2020-03-25 17:05 | disposition home or self-care (01) ==
LOC: EC 11:04 → 1SOBS 12:26
PROVIDERS: ADMIT Hospitalist; ATTEND Hospitalist
DX: I20.0 Unstable angina (principal); I25.2 Old myocardial infarction; Z98.51 Tubal ligation status; Z83.3 Family history of diabetes mellitus; Z82.3 Family history of stroke; Z80.52 Family history of malignant neoplasm of bladder; Z79.82 Long term (current) use of aspirin; Z79.899 Other long term (current) drug therapy; Z88.4 Allergy status to anesthetic agent; Z91.013 Allergy to seafood
CPT/HCPCS: 96361; 96374; 99285; 36415; 93005; 80053; 83735; 84484; 85025; 85610; 85730; 87635; 71046; G0378; J2270

== ENCOUNTER → 2020-04-24 | Outpatient (CLI) | payer BC ==
[2020-04-24 15:34] LABS: Chol/HDL Ratio 2.05; LDL Cholesterol,Calculated 64.8 mg/dL (0.0-131.0); VLDL Calculation 13.2 mg/dL (5.00-40.00)
== END | disposition home or self-care (01) ==
LOC: LABWHC1 08:54
PROVIDERS: ATTEND Internal Medicine Interventional Cardiology
DX: E78.00 Pure hypercholesterolemia, unspecified (principal)
CPT/HCPCS: 36415; 80061; 84450; 84460

== ENCOUNTER → 2020-05-18 | Outpatient (CLI) | payer BC ==
--- NOTE | 2020-05-19 11:44 | MM ---
Reason for exam: screening (asymptomatic). Last mammogram was performed 1 year ago. History: Took hormonal contraceptives for 2 years. Physical Findings: A clinical breast exam by your physician is recommended on an annual basis and results should be correlated with mammographic findings. MG 3D Screening Mammo W/Cad Bilateral CC and MLO view(s) were taken. Prior study comparison: May 03, 2019, bilateral MG 3d screening mammo w/cad. February 19, 2018, bilateral MG 3d screening mammo w/cad. There are scattered fibroglandular densities. Stable benign calcifications. There is no discrete abnormality. No significant changes when compared with prior studies. ASSESSMENT: Benign, BI-RAD 2 RECOMMENDATION: Routine screening mammogram of both breasts in 1 year.
== END | disposition home or self-care (01) ==
LOC: RADMAMWWP 07:40
PROVIDERS: ATTEND Family Medicine
DX: Z12.31 Encounter for screening mammogram for malignant neoplasm of breast (principal)
CPT/HCPCS: 77063; 77067

== ENCOUNTER → 2020-11-08 | Outpatient (CLI) | payer BC ==
--- NOTE | 2020-11-08 17:32 | CT ---
EXAMINATION TYPE: CT brain wo con DATE OF EXAM: 11/08/2020 COMPARISON: None HISTORY: 55-year-old female R51, sudden onset headaches TECHNIQUE: Examination was done in axial plane without intravenous contrast. Coronal and sagittal r econstructions performed. CT DLP: 1159 mGycm Automated exposure control for dose reduction was used. FINDINGS: There is no evidence of acute intracranial hemorrhage, acute ischemic changes, mass, mass-effect, or extra-axial fluid collection. There is no effacement of cerebral sulci or basal subarachnoid cister ns. There is no hydrocephalus. There is no midline shift. Irwin-white matter distinction is preserv ed. Benign basal ganglionic calcifications. Paranasal sinuses and mastoid air cells are well pneumatized. The globes are intact. IMPRESSION: No acute intracranial abnormality seen.
--- NOTE | 2020-11-09 07:21 | ECHOF ---
Referral Reason:R51 Headaches sudden onset MEASUREMENTS -------- HEIGHT: 165.1 cm WEIGHT: 78.0 kg BP: IVSd: 1.0 cm (0.6 - 1.1) LVIDd: 3.8 cm (3.9 - 5.3) LVPWd: 0.9 cm (0.6 - 1.1) IVSs: 1.3 cm LVIDs: 2.8 cm LVPWs: 1.3 cm LAESV Index (A-L): 14.72 ml/m Ao Diam: 2.7 cm (2.0 - 3.7) AV Cusp: 1.8 cm (1.5 - 2.6) MV EXCURSION: 19.783 mm (> 18.000) MV EF SLOPE: 118 mm/s (70 - 150) EPSS: 0.9 cm MV E Arron: 0.98 m/s MV DecT: 221 ms MV A Arron: 0.48 m/s MV E/A Ratio: 2.05 RAP: 5.00 mmHg RVSP: 25.74 mmHg FINDINGS -------- Sinus rhythm. This was a technically adequate study. The left ventricular size is normal. Left ventricular wall thickness is normal. Overall left vent ricular systolic function is low-normal with, an EF between 50 - 55 %. The diastolic filling patter n is normal for the age of the patient 9.04. The right ventricle is normal in size. Normal LA size by volume 22+/-6 ml/m2. The right atrial size is normal. Interatrial and interventricular septum intact. The aortic valve is trileaflet and appears structurally normal. Trace amount of aortic regurgitatio n. There is no evidence of aortic stenosis. The mitral valve is normal. Mild mitral regurgitation is present. Mild tricuspid regurgitation present. Right ventricular systolic pressure is normal at < 35 mmHg. The right ventricular systolic pressure, as measured by Doppler, is 25.74mmHg. There is no pulmonic regurgitation present. The aortic root size is normal. Normal inferior vena cava with normal inspiratory collapse consistent with estimated right atrial pre ssure of 5 mmHg. There is no pericardial effusion. CONCLUSIONS -------- 1. Left ventricular wall thickness is normal. 2. Overall left ventricular systolic function is low-normal with, an EF between 50 - 55 %. 3. Normal LA size by volume 22+/-6 ml/m2. 4. Trace amount of aortic regurgitation. 5. Mild mitral regurgitation is present. 6. Mild tricuspid regurgitation present. LOSS PREVENTION GUARD: Alicia Stout RDCS
== END | disposition home or self-care (01) ==
LOC: RADECHMAIN 14:54
PROVIDERS: ATTEND Family Medicine
DX: I08.3 Combined rheumatic disorders of mitral, aortic and tricuspid valves (principal)
CPT/HCPCS: 70450; 93306

== ENCOUNTER → 2022-07-04 | Outpatient (CLI) | payer BC ==
[2022-07-04 11:19] LABS: ALT 22 U/L (8-44); AST 20 U/L (13-35); Chol/HDL Ratio 2.67 Ratio; Creatine Kinase 76 U/L (26-186); LDL Cholesterol,Calculated 149.7 mg/dL (0.0-131.0); VLDL Calculation 8.04 mg/dL (5.00-40.00)
== END | disposition home or self-care (01) ==
LOC: LABWHC1 07:14
PROVIDERS: ATTEND Internal Medicine Interventional Cardiology
DX: E78.5 Hyperlipidemia, unspecified (principal)
CPT/HCPCS: 36415; 80061; 82550; 84450; 84460

== ENCOUNTER → 2022-07-18 | Outpatient (CLI) | payer BC ==
--- NOTE | 2022-07-19 08:15 | MM ---
Reason for Exam: Screening (asymptomatic). Last mammogram was performed 2 year(s) and 2 month(s) ago. Patient History: Menarche at age 12. First Full-Term at age 16. Postmenopausal. Patient used Hormonal Contraceptives for 2 years. Risk Values: Eloise 5 year model risk: 0.9%. NCI Lifetime model risk: 5.7%. Prior Study Comparison: 02/19/2018 Bilateral Screening Mammogram, [facility]. 05/03/2019 Bilateral Screening Mammogram, [facility]. 05/18/2020 Bilateral Screening Mammogram, [facility]. Tissue Density: The breast tissue is almost entirely fat. Findings: Analyzed By CAD. There is no suspicious group of microcalcifications or new suspicious mass in either breast. Overall Assessment: Negative, BI-RAD 1 Management: Screening Mammogram of both breasts in 1 year. A clinical breast exam by your physician is recommended on an annual basis and results should be correlated with mammographic findings. [facility] will attempt to contact patient to return for supplemental views and ultrasound if indicated. Electronically signed and approved by: Bryant Anders DO
== END | disposition home or self-care (01) ==
LOC: RADMAMWWP 14:58
PROVIDERS: ATTEND Family Medicine
DX: Z12.31 Encounter for screening mammogram for malignant neoplasm of breast (principal); Z78.0 Asymptomatic menopausal state
CPT/HCPCS: 77063; 77067

== ENCOUNTER → 2023-06-02 | Outpatient (CLI) | payer BC ==
[2023-06-02 11:10] LABS: Basophils # (A) 0.02 X 10*3/uL (0.00-0.10); Basophils % (A) 0.4 %; Eosinophils # (A) 0.11 X 10*3/uL (0.04-0.35); Eosinophils % (A) 2.4 %; HCT 41.5 % (37.2-46.3); HGB 13.5 g/dL (12.0-15.0); Immature Grans, Automated 0 %; Lymphocytes # (A) 1.28 X 10*3/uL (0.90-5.00); Lymphocytes % (A) 27.8 %; MCH 30.8 pg (27.0-32.0); MCHC 32.5 g/dL (32.0-37.0); MCV 94.5 FL (80.0-97.0); Monocytes # (A) 0.39 X 10*3/uL (0.20-1.00); Monocytes % (A) 8.5 %; NRBC Per 100 WBC 0 X 10*3/uL (0.00-0.01); Neutrophils # (A) 2.81 X 10*3/uL (1.80-7.70); Neutrophils % (A) 60.9 %; Platelet Count 195 X 10*3/uL (140-440); RBC 4.39 X 10*6/uL (4.10-5.20); RDW 11.9 % (11.5-14.5); WBC 4.61 X 10*3/uL (4.50-10.00)
[2023-06-02 11:39] LABS: ALT 31 U/L (8-44); AST 21 U/L (13-35); Albumin 4.3 g/dL (3.8-4.9); Albumin/Globulin Ratio 1.72 Ratio (1.60-3.17); Alkaline Phosphatase 80 U/L (41-126); Blood Urea Nitrogen 16.8 mg/dL (9.0-27.0); Calcium 9.7 mg/dL (8.7-10.3); Chloride 102 mmol/L (96-109); Chol/HDL Ratio 2.83 Ratio; Globulin 2.5 g/dL (1.6-3.3); Glucose 96 mg/dL (70-110); Potassium 4.5 mmol/L (3.5-5.5); Sodium 140 mmol/L (135-145); T4, Free (Free Thyroxine) 1.23 ng/dL (0.80-1.80); Total Bilirubin 0.4 mg/dL (0.3-1.2); Total Protein 6.8 g/dL (6.2-8.2)
== END | disposition home or self-care (01) ==
LOC: LABWHC1 07:17
DX: N95.1 Menopausal and female climacteric states (principal); R63.5 Abnormal weight gain
CPT/HCPCS: 36415; 80053; 80061; 82306; 83036; 83525; 84439; 84443; 85025

== ENCOUNTER → 2023-07-24 | Outpatient (CLI) | payer BC ==
--- NOTE | 2023-07-24 21:02 | MM ---
Reason for Exam: Screening (asymptomatic). Last screening mammogram was performed 12 month(s) ago. Patient History: Menarche at age 12. First Full-Term at age 16. Postmenopausal. Patient used Hormonal Contraceptives for 2 years. Currently using Estrogen and Progesterone, starting at age 57. Risk Values: Eloise 5 year model risk: 1.0%. NCI Lifetime model risk: 5.6%. Prior Study Comparison: 05/03/2019 Bilateral Screening Mammogram, [facility]. 05/18/2020 Bilateral Screening Mammogram, [facility]. 07/18/2022 Bilateral MG 3D screening mammo w/cad, [facility]. Tissue Density: There are scattered areas of fibroglandular density. Findings: Analyzed By CAD. The pattern is symmetrical. Pattern is stable No suspicious groups of microcalcifications, spiculated or lobular masses, architectural distortion or other secondary signs of malignancy are mammographically apparent. Overall Assessment: Benign, BI-RAD 2 Management: Screening Mammogram of both breasts in 1 year. A negative mammogram report should not preclude additional follow up of suspicious palpable abnormalities. Patient should continue monthly self breast exam. A clinical breast exam by your physician is recommended on an annual basis and results should be correlated with mammographic findings. Note on Eloise scores and lifetime risk: 1. A Eloise score greater than 3% is considered moderate risk. If this is the case, consider specialist referral to assess eligibility for a risk reducing agent. 2. If overall lifetime risk for the development of breast cancer is 20% or higher, the patient may qualify for future screening with alternating mammogram and breast MRI. Electronically signed and approved by: García Mccullough D.O. Radiologis
== END | disposition home or self-care (01) ==
LOC: RADMAMWWP 07:30
PROVIDERS: ATTEND Internal Medicine Infectious Disease
DX: Z12.31 Encounter for screening mammogram for malignant neoplasm of breast (principal); Z78.0 Asymptomatic menopausal state
CPT/HCPCS: 77063; 77067

== ENCOUNTER → 2024-09-17 | Outpatient (CLI) | payer BC ==
--- NOTE | 2024-09-17 14:58 | BD ---
EXAMINATION TYPE: Axial Bone Density DATE OF EXAM: 09/17/2024 CLINICAL HISTORY: 59 years old Female. ICD-10 CODE: N95.1 MENOPAUSAL AND FEMALE CL , Additional His tory: Height: 65 Weight: 169 FRAX RISK QUESTIONS: Family History (Parent hip fracture): no History of Fracture in Adulthood: yes Secondary Osteoporosis: no RISK FACTORS HISTORY OF: Surgery to Spine/Hip(right/left)/Wrist (right/left): no MEDICATIONS: Thyroid Medications: no Osteoporosis Medications: no EXAM MEASUREMENTS: Bone mineral densitometry was performed using the [employer]. Bone mineral density as measured about the Lumbar spine is: ----- L1-L4(G/cm2): 1.125 T Score Values are as follows: ----- L1: 0.0 ----- L2: -1.5 ----- L3: 0.4 ----- L4: -0.8 ----- L1-L4: -0.5 Z Score Values are as follows: ----- L1: 0.8 ----- L2: -0.7 ----- L3: 1.2 ----- L4: 0.0 ----- L1-L4: 0.3 Bone mineral density baseline Bone mineral density about the R hip (g/cm2): 1.105 Bone mineral density about the L hip (g/cm2): 1.087 T Score values are as follows: -----R Neck: -0.1 -----L Neck: -0.7 -----R Total: 0.8 -----L Total: 0.6 Z Score values are as follows: -----R Neck: 0.9 -----L Neck: 0.3 -----R Total: 1.4 -----L Total: 1.3 Bone mineral density baseline FRAX%s: The graph provided illustrates a 11.5% chance for a major osteoporotic fx and a 0.5% chance f or the hips probability for fx in 10 years time. IMPRESSION: Osteopenia (T Score between -2.5 and -1). There is slightly increased risk of fracture and the patient may be considered for treatment. Re-Screen 2-5 years. NOTE: T-SCORE=SD OF THE YOUNG ADULT MEAN. [facility], , 09/17/2024 2:56 PM
--- NOTE | 2024-09-20 09:03 | MM ---
Reason for Exam: Screening (asymptomatic). Last mammogram was performed 1 year(s) and 2 month(s) ago. Patient History: Menarche at age 12. First Full-Term at age 16. Postmenopausal. Patient used Hormonal Contraceptives for 2 years. Currently using Estrogen and Progesterone, starting at age 57. Risk Values: Eloise 5 year model risk: 1.0%. NCI Lifetime model risk: 5.3%. Prior Study Comparison: 05/18/2020 Bilateral Screening Mammogram, [facility]. 07/18/2022 Bilateral MG 3D screening mammo w/cad, [facility]. 07/24/2023 Bilateral MG 3D screening mammo w/cad, [facility]. Tissue Density: There are scattered areas of fibroglandular density. Findings: Analyzed By CAD. On the right, asymmetric density superior MLO middle depth is more defined and further evaluation is recommended. On the left, medial asymmetric density anterior to middle depth has increased. However, no corresponding abnormality on the MLO view. Possible superimposition shadow but further evaluation is recommended. Otherwise, no significant change. Overall Assessment: Incomplete: need additional imaging evaluation, BI-RAD 0 Management: Special View Mammogram of both breasts. Additional views right breast and spot 3-D MLO and 3 lateral views. Additional views left breast includes spot 3-D CC, 3-D CC rolled, and 3-D LM views. [facility] will attempt to contact patient to return for supplemental views and ultrasound if indicated. [facility], , 09/20/2024 9:00 AM. Electronically signed and approved by: Fatuma Worthy M.D. Radiologist
== END | disposition home or self-care (01) ==
LOC: RADMAMWWP 08-23 11:58
PROVIDERS: ATTEND Obstetrics & Gynecology
DX: Z12.31 Encounter for screening mammogram for malignant neoplasm of breast (principal); M85.89 Other specified disorders of bone density and structure, multiple sites; R92.323 Mammographic fibroglandular density, bilateral breasts; Z78.0 Asymptomatic menopausal state; Z92.0 Personal history of contraception
CPT/HCPCS: 77063; 77067; 77080

== ENCOUNTER → 2024-09-21 | Outpatient (CLI) | payer BC ==
--- NOTE | 2024-09-21 13:15 | MM ---
Reason for Exam: Additional evaluation requested from abnormal screening. Last screening mammogram was performed less than 1 month ago. Patient History: Menarche at age 12. First Full-Term at age 16. Postmenopausal. Patient used Hormonal Contraceptives for 2 years. Currently using Estrogen and Progesterone, starting at age 57. Risk Values: Eloise 5 year model risk: 1.0%. NCI Lifetime model risk: 5.3%. Prior Study Comparison: 07/24/2023 Bilateral MG 3D screening mammo w/cad, [facility]. 09/17/2024 Bilateral MG 3D screening mammo w/cad, [facility]. Tissue Density: There are scattered areas of fibroglandular density. Findings: Analyzed By CAD. Superior asymmetric density right breast on MLO persists on spot 3-D but appears to disperse on the 3-D lateral view. This favors superimposition shadow and six-month follow-up is recommended. The medial asymmetric density left cc view does not persist on additional views. Findings compatible with benign superimposition shadow. Overall Assessment: Probably benign, BI-RAD 3 Management: Diagnostic Mammogram of the right breast in 6 months. Results were given to the patient verbally at the time of exam. Patient should continue monthly self-breast exams. A clinical breast exam by your physician is recommended on an annual basis. This exam should not preclude additional follow-up of suspicious palpable abnormalities. Note on Eloise scores and lifetime risk: 1. A Eloise score greater than 3% is considered moderate risk. If this is the case, consider specialist referral to assess eligibility for a risk reducing agent. 2. If overall lifetime risk for the development of breast cancer is 20% or higher, the patient may qualify for future screening with alternating mammogram and breast MRI. [facility], , 09/21/2024 1:11 PM. Electronically signed and approved by: Fatuma Worthy M.D. Radiologist
== END | disposition home or self-care (01) ==
LOC: RADMAMWWP 12:44
PROVIDERS: ATTEND Obstetrics & Gynecology
DX: R92.8 Other abnormal and inconclusive findings on diagnostic imaging of breast (principal); R92.323 Mammographic fibroglandular density, bilateral breasts; Z78.0 Asymptomatic menopausal state; Z92.0 Personal history of contraception
CPT/HCPCS: 77062; 77066